=== PATIENT | female | born 1960 | race Caucasian/White ===

== ENCOUNTER → 2020-06-29 12:16 | Outpatient (CLI) | payer OTHER, SELFPAY ==
--- NOTE | ~2020-06-29 | MM_ITS ---
EXAMINATION: MM screening samara LT w thien HISTORY: Screening mammogram; status post right mastectomy for breast cancer TECHNIQUE: Craniocaudal and mediolateral oblique 3-D tomosynthesis images were obtained and synthetic 2-D images were generated. CAD analysis was submitted and interpreted. COMPARISON: No prior mammogram is available for comparison at this institution. BREAST PARENCHYMAL COMPOSITION: There are scattered areas of fibroglandular density. FINDINGS: There are multiple small opacities including in particular an approximately 4 mm irregular high density lesion in the outer mid upper left breast. Diagnostic left mammogram and left breast ult rasound examination are recommended. Additional 4 mm and smaller scattered low-density circumscribed opacities are noted. Multiple benign calcifications. IMPRESSION: 1. Suspicious irregular 4 mm mass at outer mid to upper left breast 2. Diagnostic left mammogram and left breast ultrasound examination are recommended. BI-RADS Category 0: Incomplete: Needs additional imaging evaluation. Reviewed, dictated and finalized at location A. IMPRESSION: 1. Suspicious irregular 4 mm mass at outer mid to upper left breast 2. Diagnostic left mammogram and left breast ultrasound examination are recomme nded. BI-RADS Category 0: Incomplete: Needs additional imaging evaluation.
== END ==
PROVIDERS: PCP Emergency Medicine; Visit Provider Emergency Medicine
DX: Z12.31 Encounter for screening mammogram for malignant neoplasm of breast (principal); R92.8 Other abnormal and inconclusive findings on diagnostic imaging of breast
CPT/HCPCS: 77063; 77067

== ENCOUNTER → 2020-07-26 09:43 | Outpatient (CLI) | payer OTHER, SELFPAY ==
--- NOTE | ~2020-07-26 | MMUS_ITS ---
EXAMINATION: MM diagnostic mammo unilat LT, US breast LT limited HISTORY: Suspicious irregular 4 mm mass reported outer mid to upper left breast on 06/29/2020 screenin g mammogram examination TECHNIQUE: Additional 3-D tomosynthesis images of the left breast were performed and synthetic 2-D im ages were generated. CAD analysis was submitted and interpreted. High resolution upper outer and lowe r-outer left breast ultrasound was performed. COMPARISON: left digital screening mammogram 01/18/2012 left digital screening mammogram FINDINGS: MAMMOGRAPHIC FINDINGS: New circumscribed 5 mm mass is noted in the outer mid left breast since 01/18/2012. Approximately 2.5 x 4.8 mm circumscribed low-density opacity in the posterior upper outer left breast is most likely a benign intramammary lymph node. Scattered benign calcifications. ULTRASOUND: 1:00 6 cm from nipple: 3.2 x 4 x 4.3 mm hypoechoic area without internal vascularity or suspicious sh adowing 4:00 subareolar area: 4.2 x 3.2 x 4.6 mm circumscribed hypoechoic lesion without internal vascularity or posterior shadowing. IMPRESSION: 1. Probable benign findings 2. 6 month diagnostic left mammogram and left targeted breast ultrasound follow-up are recommended. BI-RADS category 3, probably benign findings. Reviewed, dictated and finalized at location A. IMPRESSION: 1. Probable benign findings 2. 6 month diagnostic left mammogram and left targeted breast ultrasound follow -up are recommended. BI-RADS category 3, probably benign findings.
== END ==
PROVIDERS: PCP Emergency Medicine; Visit Provider Emergency Medicine
DX: N63.42 Unspecified lump in left breast, subareolar (principal)
CPT/HCPCS: 76642; 77065

== ENCOUNTER → 2021-01-30 07:46 | Outpatient (CLI) | payer OTHER, SELFPAY ==
--- NOTE | ~2021-01-30 | MMUS_ITS ---
EXAMINATION: MM diagnostic samara LT w thien, US breast LT limited HISTORY: Short-term follow-up of probably benign findings of left breast TECHNIQUE: ML, MLO and craniocaudal full field and spot 3-D tomosynthesis images of the left breast w ere performed and synthetic 2-D images were generated. CAD analysis was submitted and interpreted. Hi gh resolution targeted 1:00 and 4:00 left breast ultrasound was performed. COMPARISON: 07/26/2020 diagnostic left mammogram and limited left breast ultrasound 06/29/2020 left screening mammogram BREAST PARENCHYMAL COMPOSITION: There are scattered areas of fibroglandular density. FINDINGS: MAMMOGRAPHIC FINDINGS: Multiple benign calcifications are again noted. There is a circumscribed low-density mass, likely benign lymph node, measuring up to 5 mm, in the pos terior outer mid left breast. There is a circumscribed low-density 4 mm mass in the anterior outer mid left breast. No suspicious mass, architectural distortion, malignant constipation, skin thickening or retraction i s evident. No significant new or developing density is detected. ULTRASOUND: 1:00 6 cm from nipple: Circumscribed approximately 3 x 4.6 mm hypoechoic lesion without internal vasc ularity, not significantly changed since 07/26/2020 4:00 subareolar area: 3.1 x 3.4 mm circumscribed hypoechoic lesion without internal vascularity, stab le since 07/26/2020 IMPRESSION: 1. Probable benign findings 2. Diagnostic bilateral mammogram and 6 months is recommended, to include right breast at 12 month sc reening interval and left breast 6 month follow-up of probable benign findings BI-RADS category 3, probably benign findings. Reviewed, dictated and finalized at location A. T FINISHER IMPRESSION: 1. Probable benign findings 2. Diagnostic bilateral mammogram and 6 months is recommended, to include right breast at 12 month screening interval and left breast 6 month follow-up of pro bable benign findings BI-RADS category 3, probably benign findings.
== END ==
PROVIDERS: PCP Emergency Medicine; Visit Provider Emergency Medicine
DX: Z85.3 Personal history of malignant neoplasm of breast (principal)
CPT/HCPCS: 76642; 77061; 77065; G0279

== ENCOUNTER → 2021-08-01 07:55 | Outpatient (CLI) | payer OTHER, SELFPAY ==
--- NOTE | ~2021-08-01 | MMUS_ITS ---
EXAMINATION: MM diagnostic samara LT w thien, US breast LT limited HISTORY: Six-month follow-up of probable benign findings TECHNIQUE: ML, MLO and CC 3-D tomosynthesis images of the left breast were performed and synthetic 2- D images were generated. CAD analysis was submitted and interpreted. High resolution targeted left br east ultrasound at 1:00 6 cm from nipple and 4:00 subareolar area was performed. COMPARISON: 01/30/2021 and 07/26/2020 diagnostic left mammogram and limited left breast ultrasound exa mination 06/29/2020 left screening mammogram BREAST PARENCHYMAL COMPOSITION: The breasts are almost entirely fatty. FINDINGS: MAMMOGRAPHIC FINDINGS: Occasional benign calcifications. No suspicious mass, architectural distortion, malignant calcificati on, skin thickening or retraction or significant new or developing density since 06/29/2020 is evident . ULTRASOUND: 1:00 6 cm from nipple: Stable parallel circumscribed hypoechoic 4.2 mm mm lesion without internal vas cularity or posterior shadowing 4:00 subareolar area: 3.4 mm hypoechoic solid lesion with posterior shadowing, no detectable internal vascularity. Given the posterior shadowing, ultrasound-guided biopsy is recommended.. IMPRESSION: 1. Posterior shadowing at 3.4 mm mass of left breast at 4:00 subareolar area 2. Ultrasound-guided biopsy of left breast subareolar 4:00 mass is recommended BI-RADS category 4, suspicious findings. Dr. Chen telephoned the report and ultrasound-guided biopsy recommendation on 08/01/[address] Cali' practice licensed retail supervisor Breanna. Reviewed, dictated and finalized at location A. IMPRESSION: 1. Posterior shadowing at 3.4 mm mass of left breast at 4:00 subareolar area 2. Ultrasound-guided biopsy of left breast subareolar 4:00 mass is recommended BI-RADS category 4, suspicious findings. Dr. Chen telephoned the report and ultrasound-guided biopsy recommendation on 5 / at [address] Cali' practice licensed retail supervisor Breanna. IMPRESSION: 1. Posterior shadowing at 3.4 mm mass of left breast at 4:00 subareolar area 2. Ultrasound-guided biopsy of left breast subareolar 4:00 mass is recommended BI-RADS category 4, suspicious findings. Dr. Chen telephoned the report and ultrasound-guided biopsy recommendation on at [address] Cali' practice licensed retail supervisor Breanna.
== END ==
PROVIDERS: PCP Emergency Medicine; Visit Provider Emergency Medicine
DX: R92.1 Mammographic calcification found on diagnostic imaging of breast (principal); R92.8 Other abnormal and inconclusive findings on diagnostic imaging of breast
CPT/HCPCS: 76642; 77061; 77065; G0279

== ENCOUNTER 2021-08-08 10:13 | Outpatient (CLI) | payer OTHER, SELFPAY ==
--- NOTE | ~2021-08-08 | US_ITS ---
EXAMINATION: Consultation US HISTORY: Mass in the lower outer quadrant of the left breast TECHNIQUE: Limited left breast ultrasound is performed in the area of clinical concern. FINDINGS: Patient presents for biopsy of a 3 mm round left breast mass. With real-time ultrasound, an d comparison to prior mammogram and ultrasound images, the mass appears to have a stable appearance w ithout suspicious interval change. IMPRESSION: Probably benign left breast mass. Given one year of interval stability, follow-up diagnostic mammogra m and ultrasound in 12 months are recommended. BI-RADS category 3, probably benign findings. Reviewed, dictated and finalized at location A. IMPRESSION: Probably benign left breast mass. Given one year of interval stability, follow- up diagnostic mammogram and ultrasound in 12 months are recommended. BI-RADS category 3, probably benign findings.
== END 2021-08-08 10:14 | disposition home or self-care (01) ==
PROVIDERS: PCP Emergency Medicine; Visit Provider Emergency Medicine
DX: N63.42 Unspecified lump in left breast, subareolar (principal); R92.8 Other abnormal and inconclusive findings on diagnostic imaging of breast
CPT/HCPCS: 76642; 99199

== ENCOUNTER → 2022-08-07 07:54 | Outpatient (CLI) | payer OTHER, SELFPAY ==
--- NOTE | ~2022-08-07 | MMUS_ITS ---
EXAMINATION: US breast LT limited, MM diagnostic samara LT w thien HISTORY: Follow-up left breast masses TECHNIQUE: Additional 3-D tomosynthesis images of the left breast were performed and synthetic 2-D im ages were generated. CAD analysis was submitted and interpreted. High resolution Limited left breast ultrasound was performed. COMPARISON: Comparison to multiple prior studies sequentially, with oldest reviewed study dated 06/29. BREAST PARENCHYMAL COMPOSITION: Breast composed of scattered areas of fibroglandular density FINDINGS: MAMMOGRAPHIC FINDINGS: Left breast asymmetries are stable. There are benign left breast calcifications. No new masses, calci fications or architectural distortion in the left breast. ULTRASOUND: Limited left breast ultrasound: At 1:00, 6 cm from the nipple there is a 5 mm oval circumscribed hypo echoic mass with parallel orientation, no significant posterior features and no internal vascularity, unchanged dating back to 07/26/2020. At 4:00 near the areola there is an oval hypoechoic mass measuri ng 3 mm with posterior shadowing, circumscribed margins, also unchanged in size and appearance compar ed with prior study. IMPRESSION: 1. Stable benign-appearing left breast masses. No new masses, calcifications or architectural distort ion to suggest malignancy. 2. Routine yearly screening mammogram and regular clinical breast examination are recommended. BI-RADS Category 2: Benign finding(s). Reviewed, dictated and finalized at location A. IMPRESSION: 1. Stable benign-appearing left breast masses. No new masses, calcifications or architectural distortion to suggest malignancy. 2. Routine yearly screening mammogram and regular clinical breast examination a re recommended. BI-RADS Category 2: Benign finding(s).
== END ==
PROVIDERS: PCP Emergency Medicine; Visit Provider Emergency Medicine
DX: R92.8 Other abnormal and inconclusive findings on diagnostic imaging of breast (principal); N63.20 Unspecified lump in the left breast, unspecified quadrant
CPT/HCPCS: 76642; 77061; 77065; G0279

== ENCOUNTER 2023-01-07 14:31 | Emergency (ER) | payer OTHER, SELFPAY ==
[2023-01-07 14:37] VITALS: BP 149/77; PULSE 89; RESP 16; TEMP 36.9; O2SAT 98
[2023-01-07 14:42] VITALS: BP 149/77; PULSE 89; RESP 16; TEMP 36.9; O2SAT 98
--- NOTE | 2023-01-07 14:46 | ED.GENADULT ---
HPI - General Adult General Chief complaint: Dental/Oral Stated complaint: Face swollen Time Seen by Provider: 01/07/23 14:46 Source: patient, RN notes reviewed and old records reviewed Mode of arrival: ambulatory Limitations: no limitations History of Present Illness HPI narrative: 62-year-old female presents to the [facility] with a swollen right lower jaw. No redness noted. Patient has poor dentition with multiple sikh however no signs of infection. Patient is a smoker Patient denies any cough, congestion, sinus pain, sore throat, ear pain. Denies any URI symptoms Related Data Allergies Allergy/AdvReac Type Severity Reaction Status Date / Time No Known Allergies Allergy Verified 01/07/23 14:42 Review of Systems Review of Systems: All systems reviewed & are unremarkable except as noted in HPI and below Constitutional: Constitutional: Reports no additional constitutional complaints Eyes: Eyes: Reports no additional eye complaints ENT: Reports as per HPI Cardiovascular: Cardiovascular: Reports no additional cardiovascular complaints, Denies chest pain and Denies dyspnea Respiratory: Respiratory: Reports no additional respiratory complaints, Denies chest congestion, Denies cough and Denies dyspnea Gastrointestinal: Gastrointestinal: Reports no additional gastrointestinal complaints, Denies abdominal pain, Denies nausea and Denies vomiting Musculoskeletal: Musculoskeletal: Reports no additional musculoskeletal complaints Integumentary/Breasts: Skin/Breast: Reports system reviewed and no additional complaints, except as docu Neurologic: Reports system reviewed and no additional complaints, except as documented Psychiatric: Psychiatric: Reports no additional psychiatric complaints Allergic/Immunologic: Allergic/Immunologic: Reports no additional allergic/immunologic complaints PMFSH Past Medical History Medical History Cancer Chicken pox Cholecystectomy planned (~2006) Femur fracture, right (~2008) Hernia Vaginal infection Surgical History Surgical History History of appendectomy (~1998) History of breast implant (~2005) History of hernia surgery (~2000) History of mastectomy (~2004) Family History Family History Father , 66 Lymphoma Mother , 76 Cancer Social History Social History Social History: Patient drinks 2-3 cups of caffeine daily. Smoking packs per day: 1 Smoking cigarettes per day: 20.0 Years smoked: 25 Smoking pack-years: 25.00 Smoking status: Current every day smoker Tobacco type: cigarettes Alcohol intake: current Substance use: never Substance use type: does not use Lack of Transportation: No Lack of Food: Never True Current Housing: I Have Housing Concerned About Future Housing: No Difficulty Paying Gas/Electric Bills: No Difficulty Paying for Meds: No Education: High School Diploma/GED Difficulty w/ Childcare or Family Care: No Occupation/Education: retired Gender identity (if verbalized by the patient): Female Sexual Orientation (if Verbalized by the Patient): Straight or Heterosexual Comments At the time of my signature, I reviewed and agree with the nursing past medical, surgical, social, and family history. There is no relevant family history pertinent to the patient complaint. Exam Const: General: cooperative, healthy appearing, comfortable, no acute distress, well developed, alert and well nourished Nutritional Appearance: well nourished and obese Orientation/consciousness: patient oriented x3 Limitations: no limitations HENMT: Head: normal to inspection Ears: hearing grossly normal bilaterally and external ears normal Face/Nose/Sinus: Normal external nose present, Normal nares pres
== END 2023-01-07 15:08 | disposition home or self-care (01) ==
PROVIDERS: Emergency Provider Nurse Practitioner; PCP Emergency Medicine
DX: R59.9 Enlarged lymph nodes, unspecified (principal); F17.210 Nicotine dependence, cigarettes, uncomplicated; I10 Essential (primary) hypertension; E11.9 Type 2 diabetes mellitus without complications; Z85.3 Personal history of malignant neoplasm of breast; Z90.10 Acquired absence of unspecified breast and nipple
CPT/HCPCS: 99211; G0463

== ENCOUNTER 2023-03-20 01:22 | Day surgery (SDC) | payer OTHER, SELFPAY ==
[2023-02-19 08:42] VITALS: BMI 31.6
--- NOTE | 2023-03-18 10:33 | SUR.PREOP ---
Patient called regarding upcoming procedure. Reviewed preop instructions, appointment times, and procedure prep.
[2023-03-20 06:40] VITALS: BP 140/63; PULSE 78; RESP 16; TEMP 35.9; O2SAT 99
[2023-03-20 06:40] LABS: Glucose Point of Care 151 mg/dl (65-105)
[2023-03-20] MEDS: LACTATED RINGERS 1,000 ML 150 ML IV CONT (06:44)
--- NOTE | 2023-03-20 07:44 | PM.HPGS ---
History of Present Illness History of Present Illness Consent: Risks, benefits, and alternatives have been discussed and questions answered. Patient agrees to proceed with procedure. Chief complaint: Other fecal abnormalities (+cologuard) Narrative: Royce Boothe is a 62 year old female here for first colonoscopy, had + cologuard Review of Systems Constitutional: Constitutional: Denies headache(s) and Denies weakness Eyes: Eyes: Denies blurry vision ENT: Reports Normal hearing present, Denies headache(s) and Denies neck pain Cardiovascular: Cardiovascular: Denies chest pain and Denies dyspnea Respiratory: Respiratory: Denies dyspnea Gastrointestinal: Gastrointestinal: Reports no additional gastrointestinal complaints Genitourinary: Genitourinary: Denies dysuria Musculoskeletal: Musculoskeletal: Denies neck pain Integumentary/Breasts: Skin/Breast: Denies dry skin Neurologic: Reports Normal hearing present, Denies headache(s) and Denies weakness Psychiatric: Psychiatric: Denies anxiety Endocrine: Endocrine: Denies change in body appearance Hematologic/Lymphatic: Hematologic/Lymphatic: Denies easy bleeding Allergic/Immunologic: Allergic/Immunologic: Denies urticaria PMFSH Past Medical History Medical History (Updated 03/20/23 @ 07:45 by Diomedes Suresh MD) Cancer Chicken pox Cholecystectomy planned (~2006) Femur fracture, right (~2008) Hernia Positive colorectal cancer screening using Cologuard test Vaginal infection Surgical History Surgical History History of appendectomy (~1998) History of breast implant (~2005) History of hernia surgery (~2000) History of mastectomy (~2004) Family History Family History Father , 66 Lymphoma Mother , 76 Cancer Social History Social History Social History: Patient drinks 2-3 cups of caffeine daily. Smoking packs per day: 1 Smoking cigarettes per day: 20.0 Years smoked: 40 Smoking pack-years: 40.00 Smoking status: Current every day smoker Tobacco type: cigarettes Alcohol intake: current Alcohol use details: Rarely Substance use: never Substance use type: marijuana Other substance usage details: CBD gummies occasionaly at night Lack of Transportation: No Lack of Food: Never True Current Housing: I Have Housing Concerned About Future Housing: No Difficulty Paying Gas/Electric Bills: No Difficulty Paying for Meds: No Currently Unemployed: No Education: Associate Degree Difficulty w/ Childcare or Family Care: No Living arrangements: other Additional living arrangements comments: with sp Occupation/Education: retired Gender identity (if verbalized by the patient): Female Sexual Orientation (if Verbalized by the Patient): Straight or Heterosexual Meds Home Medications and Allergies Home Medications Medication Instructions Recorded Confirmed Type rosuvastatin 10 mg tablet (Crestor) 10 mg PO DAILY #90 tabs 01/09/23 03/20/23 Rx krill 1 cap PO DAILY 02/19/23 03/20/23 History [id number]-gil-[id number] 1,500 mg-165 mg-67.5 mg capsule (Krill Oil ([place] 3 and 6)) vitamin B complex 1 cap PO DAILY 02/19/23 03/20/23 History losartan 100 1 tablet PO DAILY 03/20/23 03/20/23 History mg-hydrochlorothiazide 12.5 mg tablet metformin 500 mg tablet 500 mg PO BID 03/20/23 03/20/23 History Allergies Allergy/AdvReac Type Severity Reaction Status Date / Time No Known Allergies Allergy Verified 03/20/23 06:38 Vital Signs Vital Signs - 24 hr 03/20/23 06:40 Temperature 96.6 F L Pulse Rate 78 Respiratory Rate 16 Blood Pressure 140/63 Pulse Oximetry 99 Oxygen Delivery Room Air Exam Const: General: comfortable and no acute distress HENMT: Face/Nose/Sinus: Normal nares
--- NOTE | 2023-03-20 07:49 | WPDANESEPPF ---
Anes - Initial Pre Proc Eval Procedure: Operation Date: 03/20/23 08:00 Proposed Procedures p Colonoscopy - Diomedes Suresh MD Date/Time: 03/20/23 07:49 Surgeon: Diomedes Suresh MD Pre Op Diagnosis: Other fecal abnormalities (+cologuard) Patient Data Age: 62 Gender: F Height: 1.6 m Weight: 80.9 kg Last Vital Signs Temp 96.6 F L 03/20/23 06:40 Pulse 78 03/20/23 06:40 Resp 16 03/20/23 06:40 BP 140/63 03/20/23 06:40 Pulse Ox 99 03/20/23 06:40 O2 Del Method Room Air 03/20/23 06:40 Allergies Allergy/AdvReac Type Severity Reaction Status Date / Time No Known Allergies Allergy Verified 03/20/23 06:38 Home Medications Medication Instructions Recorded Confirmed Type rosuvastatin 10 mg tablet (Crestor) 10 mg PO DAILY #90 tabs 01/09/23 03/20/23 Rx krill 1 cap PO DAILY 02/19/23 03/20/23 History [id number]-[id number]-astax 1,500 mg-165 mg-67.5 mg capsule (Krill Oil ([place] 3 and 6)) vitamin B complex 1 cap PO DAILY 02/19/23 03/20/23 History losartan 100 1 tablet PO DAILY 03/20/23 03/20/23 History mg-hydrochlorothiazide 12.5 mg tablet metformin 500 mg tablet 500 mg PO BID 03/20/23 03/20/23 History Laboratory Tests 03/20/23 06:36 POC Capillary Glucose 151 H mg/dl (65-105) Patient hx anesthesia problems: none Family hx anesthesia problems: none Results Review: All pre-operative results and documents have been reviewed as part of the pre-operative evaluation. [facility] Past Medical History Medical History (Updated 03/20/23 @ 07:45 by Diomedes Suresh MD) Cancer Chicken pox Cholecystectomy planned (~2006) Femur fracture, right (~2008) Hernia Positive colorectal cancer screening using Cologuard test Vaginal infection Surgical History Surgical History History of appendectomy (~1998) History of breast implant (~2005) History of hernia surgery (~2000) History of mastectomy (~2004) Family History Family History Father , 66 Lymphoma Mother , 76 Cancer Social History Social History Social History: Patient drinks 2-3 cups of caffeine daily. Smoking packs per day: 1 Smoking cigarettes per day: 20.0 Years smoked: 40 Smoking pack-years: 40.00 Smoking status: Current every day smoker Tobacco type: cigarettes Alcohol intake: current Alcohol use details: Rarely Substance use: never Substance use type: marijuana Other substance usage details: CBD gummies occasionaly at night Lack of Transportation: No Lack of Food: Never True Current Housing: I Have Housing Concerned About Future Housing: No Difficulty Paying Gas/Electric Bills: No Difficulty Paying for Meds: No Currently Unemployed: No Education: Associate Degree Difficulty w/ Childcare or Family Care: No Living arrangements: other Additional living arrangements comments: with sp Occupation/Education: retired Gender identity (if verbalized by the patient): Female Sexual Orientation (if Verbalized by the Patient): Straight or Heterosexual Anes - Eval Final PreProcedure Day of Procedure 03/20/23 07:49 Patient weight: obese Heart: regular rate and rhythm Lungs: clear to auscultation Airway: Mallampati scale class II Neurological: alert and oriented Last oral intake: >/= 8 hours ASA classification: III Emergent: no Anesthetic plan: proceed Anesthesia type and monitoring: general GIVS and standard monitoring Results Review: All pre-operative results and documents have been reviewed as part of the pre-operative evaluation. Informed Consent: The patient's anesthetic plan and its attendant risks and benefits were discussed with the patient/family/POA. Questions were solicited and answers provided to the satisfaction o
[2023-03-20 08:18] VITALS: BP 94/55; PULSE 61; RESP 26; O2SAT 97
[2023-03-20 08:28] VITALS: BP 97/54; PULSE 63; RESP 26; O2SAT 97
[2023-03-20 08:38] VITALS: BP 121/78; PULSE 62; RESP 20; O2SAT 97
== END 2023-03-20 08:44 | disposition home or self-care (01) ==
PROVIDERS: PCP Emergency Medicine; Visit Provider Internal Medicine Gastroenterology
PROC: 0DJD8ZZ Inspection of Lower Intestinal Tract, Via Natural or Artificial Opening Endoscopic (ICD-10-PCS; CPT 45378; principal; 2023-03-20 08:00)
DX: R19.5 Other fecal abnormalities (principal); D12.8 Benign neoplasm of rectum; K57.30 Diverticulosis of large intestine without perforation or abscess without bleeding; K64.8 Other hemorrhoids; Z85.3 Personal history of malignant neoplasm of breast; F17.210 Nicotine dependence, cigarettes, uncomplicated; E11.9 Type 2 diabetes mellitus without complications; E78.5 Hyperlipidemia, unspecified; I10 Essential (primary) hypertension
CPT/HCPCS: 45385; 82948; 88305; J2704; J7120

== ENCOUNTER 2023-09-28 12:53 | Emergency (ER) | payer OTHER, SELFPAY ==
[2023-09-28] VITALS (11 sets, daily range): BP systolic 146–157; BP diastolic 55–81; PULSE 80–93; RESP 16–46; TEMP 36.4–37.2; O2SAT 94–99
--- NOTE | ~2023-09-28 | XR_ITS ---
XR chest 2V 09/28/2023 13:33 Indication: Chest pain Procedure: 2 view chest Comparison: No prior studies for comparison. Findings: Heart size normal. No focal air space disease, pulmonary edema, pleural effusion or suspect ed pneumothorax. Left basilar atelectasis/scarring. Impression: 1: No acute cardiopulmonary disease. Reviewed, dictated and finalized at location B. Impression: 1: No acute cardiopulmonary disease.
--- NOTE | ~2023-09-28 | CT_ITS ---
CTA chest PE protocol Ordering provider: Getachew Ash APRN History: 63 years Female with . cp sob . Comparison: None. Technique: CT angiogram chest was performed following timed intravenous injection of contrast. Thin s lice axial images and reformatted coronal images were obtained. Three dimensional reformatted images of the chest were also obtained using a [employer] workstation. . Automated exposure control and iterati ve reconstruction technique were employed. The dose-length product was 355.69 mGy-cm. 100 ML Omnipaqu e 350 was given IV. Findings: PULMONARY ARTERIES: No pulmonary embolus. VISUALIZED THORACIC INLET: Normal. Right breast implant. MEDIASTINUM: Aorta/coronary arteries: Mild atheromatous disease. Heart/other: The heart is not enlarged. Lymph nodes: No mediastinal or hilar adenopathy. LUNGS: No pulmonary nodules or masses. No infiltrates or effusions. No pneumothorax. Dependent atelectatic c hanges. VISUALIZED UPPER ABDOMEN: Fat infiltration of the liver. Small sliding hiatus hernia. Fatty lesion in the left adrenal gland measurin.9 cm most likely myelolipoma prominent both adrenal glands is se en. Right adrenal adenoma or myelolipoma is seen measuring 1.1 cm. Otherwise, the visualized upper ab domen is normal. MUSCULOSKELETAL: Soft tissues: The superficial soft tissues are normal. Bones: Age appropriate degenerative changes of the spine. IMPRESSION: 1. No pulmonary embolism. 2. Atelectatic changes in the lung bases most likely chronic. 3. Bilateral adrenal fatty lesion is most likely minor lipomas. 4. Fat infiltration of the liver Reviewed, dictated and finalized at location A.
--- NOTE | 2023-09-28 12:55 | ECG_ITS ---
Test Date: 2023-09-28 12:59:59 Measurements Intervals Yale Rate: 87 P: 173 NC: 163 QRS: 146 QRSD: 94 T: 138 QT: 352 QTc: 426 Interpretive Statements SINUS RHYTHM LIMB LEAD REVERSAL BASELINE ARTIFACT- I, II, III, AVL ATYPICAL ECG No previous ECG available for comparison Electronically Signed On 09-28-2023 19:42:46 CDT by Gray Clemons D.O.
[2023-09-28 13:16] LABS: Basophils Percent Auto 0.2 % (0.2-1.2); Hematocrit 43.9 % (37.0-47.0); Hemoglobin 14.9 g/dL (12.0-15.0); Immature Granulocyte Percent A 0.6 % (0-0.5); Lymphocytes Absolute Auto 1.05 K/mm3 (0.9-3.2); Lymphocytes Percent Auto 6.1 % (18.3-44.2); Mean Corpuscular HGB Conc 33.9 g/dl (32-36); Mean Corpuscular Hemoglobin 29.9 pg (26-34); Monocytes Absolute Auto 1.4 K/mm3 (0.1-0.6); Neutrophils Absolute Auto 14.7 K/mm3 (1.3-6.7); Neutrophils Percent Auto 85.1 % (45.5-73.1); Platelet Count Result 165 k/mm3 (150-375); Red Blood Count 4.99 M/mm3 (4.2-5.4); Red Cell Distribution Width 12.1 % (11.5-14.5); White Blood Count 17.3 K/mm3 (4.5-10.0)
[2023-09-28 13:26] LABS: INR 1.1; Prothrombin Time 14.4 Seconds (11.1-14.7)
[2023-09-28 13:27] LABS: Partial Thromboplastin Time 30.3 Seconds (22.3-36.8)
[2023-09-28 13:32] LABS: Alanine Aminotransferase 20 U/L (6-35); Albumin Level 4.4 g/dL (3.5-5.1); Alkaline Phosphatase 45 U/L (38-126); Anion Gap 11 mmol/L (4-12); Aspartate Amino Transferase 21 U/L (14-36); Bilirubin,Total 0.6 mg/dL (0.2-1.3); Blood Urea Nitrogen 12 mg/dL (7-17); Carbon Dioxide 25 mmol/L (22-30); Chloride 96 mmol/L (98-107); Estimated CRCL calculation 96 ml/min; Estimated Glomerular Filt Rate > 60; Glucose 144 mg/dL (65-110); Lipase 22 U/L (23-300); Sodium 132 mmol/L (137-145)
[2023-09-28 13:41] LABS: Troponin I < 0.012 ng/mL (0.000-0.034)
--- NOTE | 2023-09-28 15:59 | ED.CHESTPAIN ---
HPI - Chest Pain General Chief Complaint: Chest Pain Stated Complaint: Chest Pain, SOB Time Seen by Provider: 09/28/23 15:58 Source: patient Mode of arrival: ambulatory Limitations: no limitations History of Present Illness HPI narrative: Fátima is a 63-year-old female patient presenting to the clinic today with complaints midsternal chest pain, shortness of breath, lightheadedness, and cough for the past 3 days. States the pain in her chest is midsternal and rates it a 3/10- aching and constant. Pain is nonradiating. Does have a Nausea and decreased appetite. Symptoms started 3 days ago. Related Data Home Medications Medication Instructions Recorded Confirmed krill 1 cap PO DAILY 02/19/23 07/31/23 [id number] 1,500 mg-165 mg-67.5 mg capsule (Krill Oil (Dieterich 3 and 6)) vitamin B complex 1 cap PO DAILY 02/19/23 07/31/23 Allergies Allergy/AdvReac Type Severity Reaction Status Date / Time No Known Allergies Allergy Verified 07/31/23 10:09 Review of Systems Review of Systems: Pertinent positives per HPI. Patient denies any fever, chills, rash, headache, visual changes, dizziness, cough, runny nose, sore throat, shortness of breath, chest pain, palpitations, nausea, vomiting, diarrhea, constipation, abdominal pain, or any urinary issues. [facility] Past Medical History Medical History Cancer Chicken pox Cholecystectomy planned (~2006) Femur fracture, right (~2008) Hernia Positive colorectal cancer screening using Cologuard test Vaginal infection Surgical History Surgical History History of appendectomy (~1998) History of breast implant (~2005) History of hernia surgery (~2000) History of mastectomy (~2004) Family History Family History Father , 66 Lymphoma Mother , 76 Cancer Social History Social History Social History: Patient drinks 2-3 cups of caffeine daily. Smoking packs per day: 1 Smoking cigarettes per day: 20.0 Years smoked: 40 Smoking pack-years: 40.00 Smoking status: Current every day smoker Tobacco type: cigarettes Alcohol intake: current Alcohol use details: Rarely Substance use: never Substance use type: marijuana Other substance usage details: CBD gummies occasionaly at night Do You Feel Safe in your Home?: Yes Lack of Transportation: No Lack of Food: Never True Current Housing: I Have Housing Concerned About Future Housing: No Difficulty Paying Gas/Electric Bills: No Difficulty Paying for Meds: No Currently Unemployed: No Education: Associate Degree Difficulty w/ Childcare or Family Care: No Living arrangements: other Additional living arrangements comments: with sp Occupation/Education: retired Gender identity (if verbalized by the patient): Female Sexual Orientation (if Verbalized by the Patient): Straight or Heterosexual Comments At the time of my signature, I reviewed and agree with the nursing past medical, surgical, social, and family history. There is no relevant family history pertinent to the patient complaint. Exam Narrative: General: Well-developed, well nourished, in no apparent distress Head: Normocephalic, atraumatic. Cardio: Regular rate and rhythm, s1 and s2 normal, no murmur appreciated. Resp: Faint crackles over the bilateral lower lobes, no rhonchi, wheezing or rubs. Extremities: No deformity, no edema, no cyanosis, capillary refill less than 2 seconds, peripheral pulses palpable and strong. Integumentary: Oval, warm, and dry, intact without lesion, no rashes. Abdomen: Soft, pliable, bowel sounds present in all quadrants, non-tender to palpation, no organomegly, no CVAT tenderness. Course Course Emergency Cou
[2023-09-28 16:57] LABS: D Dimer 1.16 ug/mL (<0.48)
[2023-09-28 16:59] LABS: NT Pro B Type Natriuretic Pept 623 pg/mL (19.9-100)
[2023-09-28 17:13] LABS: Troponin I < 0.012 ng/mL (0.000-0.034)
[2023-09-28] MEDS: SODIUM CHLORIDE 0.9% IV 1,000 ML 150 ML IV CONT (17:13)
[2023-09-28] MEDS: ASPIRIN 81 MG CHEWABLE TABLET 324 MG PO (17:13)
--- NOTE | 2023-09-28 17:25 | ECG_ITS ---
Test Date: 2023-09-28 17:36:03 Measurements Intervals [place] Rate: 82 P: 13 MN: 166 QRS: 45 QRSD: 94 T: 51 QT: 347 QTc: 405 Interpretive Statements SINUS RHYTHM BASELINE ARTIFACT- I, II, III, AVR, AVL, AVF, V2 NORMAL ECG Compared to ECG 09/28/2023 12:59:59 NO SIGNIFICANT CHANGE Electronically Signed On 09-28-2023 19:31:28 CDT by Gray Clemons D.O.
[2023-09-28 19:03] LABS: Influenza A QL RT-PCR Negative (Negative); Influenza B QL RT-PCR Negative (Negative); RSV RNA, RT-PCR Negative (Negative); SARS-CoV-2 RNA PCR Negative (Negative)
== END 2023-09-28 19:32 | disposition home or self-care (01) ==
PROVIDERS: Emergency Medicine; Emergency Provider Nurse Practitioner Family; PCP Emergency Medicine
DX: R07.89 Other chest pain (principal); J40 Bronchitis, not specified as acute or chronic; F17.210 Nicotine dependence, cigarettes, uncomplicated; Z20.822 Contact with and (suspected) exposure to COVID-19
CPT/HCPCS: 36415; 71046; 71275; 80053; 83690; 83880; 84484; 85025; 85380; 85610; 85730; 87637; 93005; 96360; 96361; 99284; A9270; J7030; Q9967

== ENCOUNTER 2024-01-14 07:14 | Outpatient (CLI) | payer OTHER, SELFPAY ==
--- NOTE | ~2024-01-14 | MM_ITS ---
EXAMINATION: MM diagnostic mammo unilat LT HISTORY: Prior history of right breast cancer TECHNIQUE: 3-D tomosynthesis images of the left breast were performed and synthetic 2-D images were g enerated. CAD analysis was submitted and interpreted. COMPARISON: 08/07/2022, 08/01/2021, 01/30/2021 BREAST PARENCHYMAL COMPOSITION:Not Dense. There are scattered areas of fibroglandular density. FINDINGS: Parenchymal pattern of the left breast is unchanged. No suspicious mass lesion or distortio n. No suspicious microcalcifications. Stable benign calcifications. IMPRESSION: No mammographic evidence for malignancy. BI-RADS Category 2: Benign finding(s). Reviewed, dictated and finalized at location . R PASSENGER CAR
== END 2024-01-14 07:15 | disposition home or self-care (01) ==
LOC: CHSIMG 07:16
PROVIDERS: PCP Emergency Medicine; Visit Provider Emergency Medicine
DX: Z12.31 Encounter for screening mammogram for malignant neoplasm of breast (principal); Z85.3 Personal history of malignant neoplasm of breast
CPT/HCPCS: 77065